=== PATIENT | female | born 1980 | race Caucasian/White ===

== ENCOUNTER → 2018-09-29 | Outpatient (CLI) | payer OTHER ==
[~2018-09-29] MED LIST: ALBU90OI; ALPR.25 PO; ALPR1 PO; DOXY100 PO; Effexor Xr37.5 MG PO; FERR325 PO; HYDACE5 PO; METO25ER PO; ONDA4ODT MM; OXYACE5T PO; OXYACE7.5T PO; OXYC5 PO; PROM25 PO; Percocet 5-3251 EACH PO; RXHYDACE PO; VENL75ER PO
[2018-09-29 13:04] LABS: BASOPHILS ABSOLUTE AUTO 0.04 K/mm3 (0.00-0.23); BASOPHILS PERCENT AUTO 1 % (0-2); EOSINOPHILS ABSOLUTE AUTO 0.13 K/mm3 (0.00-0.68); EOSINOPHILS PERCENT AUTO 2 % (0-6); Hematocrit 41.8 % (33.0-51.0); Hemoglobin 14.3 g/dL (11.5-16.0); IMMATURE GRAN ABSOLUTE AUTO 0.01 K/mm3 (0.00-0.10); IMMATURE GRAN PERCENT AUTO 0 % (0-1); LYMPHOCYTES PERCENT AUTO 27 % (21-46); MONOCYTES ABSOLUTE AUTO 0.38 K/mm3 (0.16-1.47); MONOCYTES PERCENT AUTO 7 % (4-13); Mean Corpuscular HGB Conc 34.2 g/dL (31.5-36.5); Mean Corpuscular Volume 88 fL (80-100); Mean Platelet Volume 11.7 fL (9.1-12.4); NEUTROPHILS ABSOLUTE AUTO 3.71 K/mm3 (1.96-9.15); NEUTROPHILS PERCENT AUTO 63 % (41-73); Platelet Count 225 K/mm3 (150-400); RDW Standard Deviation 41.8 fL (35.1-46.3); Red Blood Cell Count 4.77 M/mm3 (3.80-5.20); White Blood Cell Count 5.87 K/mm3 (4.00-11.30)
[2018-09-29 13:21] LABS: Alanine Aminotransfer (ALT/SGP 39 U/L (12-78); Albumin, Blood 4.1 g/dL (3.4-5.0); Albumin/Globulin Ratio 1.3 (0.8-1.8); Alk Phos 65 U/L (40-126); Anion Gap 8 mmol/L (6-16); Aspartate Aminotrans (AST/SGOT 17 U/L (12-37); Bilirubin, Total 0.4 mg/dL (0.1-1.0); Blood Urea Nitrogen 9 mg/dL (8-24); Bun/Creatinine Ratio 10.8 (12.0-20.0); CO2, Blood 27 mmol/L (21-32); Calcium, Blood 8.7 mg/dL (8.5-10.1); Chloride, Blood 104 mmol/L (98-108); Creatinine, Blood 0.83 mg/dL (0.40-1.00); Globulin, Blood 3.2 g/dL (2.2-4.0); Glomerular Filtration Rate >60 (60-); Glucose, Blood 96 mg/dL (70-99); Potassium, Blood 4.2 mmol/L (3.5-5.5); Sodium, Blood 139 mmol/L (136-145); Thyroid Stimulating Hormone 2.833 uIU/mL (0.360-4.800); Total Protein, Blood 7.3 g/dL (6.4-8.2)
== END | disposition home or self-care (01) ==
LOC: LAB EV 12:56 → LAB SHORT 12:56
PROVIDERS: Physician Assistant
DX: R53.83 Other fatigue (principal); I10 Essential (primary) hypertension
CPT/HCPCS: 80053; 82306; 84443; 85025

== ENCOUNTER → 2019-02-18 | Outpatient (CLI) | payer OTHER ==
[2019-02-18 11:08] LABS: BASOPHILS ABSOLUTE AUTO 0.03 K/mm3 (0.00-0.23); BASOPHILS PERCENT AUTO 1 % (0-2); EOSINOPHILS ABSOLUTE AUTO 0.15 K/mm3 (0.00-0.68); EOSINOPHILS PERCENT AUTO 3 % (0-6); Hematocrit 41.2 % (33.0-51.0); Hemoglobin 13.2 g/dL (11.5-16.0); IMMATURE GRAN ABSOLUTE AUTO 0.01 K/mm3 (0.00-0.10); IMMATURE GRAN PERCENT AUTO 0 % (0-1); LYMPHOCYTES ABSOLUTE AUTO 1.64 K/mm3 (0.84-5.20); LYMPHOCYTES PERCENT AUTO 30 % (21-46); MONOCYTES PERCENT AUTO 7 % (4-13); Mean Corpuscular HGB 29.4 pg (26.0-34.0); Mean Corpuscular Volume 92 fL (80-100); Mean Platelet Volume 10.9 fL (9.1-12.4); NEUTROPHILS ABSOLUTE AUTO 3.16 K/mm3 (1.96-9.15); NEUTROPHILS PERCENT AUTO 59 % (41-73); Platelet Count 237 K/mm3 (150-400); RDW Coefficient Variation 12.7 % (11.7-14.2); RDW Standard Deviation 42.5 fL (35.1-46.3); Red Blood Cell Count 4.49 M/mm3 (3.80-5.20); White Blood Cell Count 5.39 K/mm3 (4.00-11.30)
[2019-02-18 12:13] LABS: Free Thyroxine 0.82 ng/dL (0.70-1.60)
[2019-02-18 12:15] LABS: Thyroid Stimulating Hormone 2.4 uIU/mL (0.360-4.800)
== END | disposition home or self-care (01) ==
LOC: LAB SHORT 08:15 → LAB UCHC 08:15
PROVIDERS: Family Medicine
DX: E55.9 Vitamin D deficiency, unspecified (principal); F32.9 Major depressive disorder, single episode, unspecified
CPT/HCPCS: 82306; 84439; 84443; 85025

== ENCOUNTER → 2019-05-20 | Outpatient (CLI) | payer OTHER ==
[~2019-05-20] MED LIST changes: +BUPR75 PO; +IBUP800 PO; +MAGCHL64ER PO; +Vitamin D2000 UNIT PO
== END | disposition home or self-care (01) ==
LOC: LAB 11:20 → LAB SHORT 11:20
DX: R35.0 Frequency of micturition (principal)
CPT/HCPCS: 87077; 87086; 87186

== ENCOUNTER → 2019-05-22 | Outpatient (CLI) | payer OTHER ==
[2019-05-24 14:06] LABS: HPV 16 Negative (Negative); HPV 18 Negative (Negative); HPV OTHER HR TYPES Negative (Negative)
== END | disposition home or self-care (01) ==
LOC: LAB 16:28 → LAB SHORT 16:28
PROVIDERS: Obstetrics & Gynecology
DX: Z01.419 Encounter for gynecological examination (general) (routine) without abnormal findings (principal)
CPT/HCPCS: 87624; G0123

== ENCOUNTER → 2019-06-19 | Outpatient (CLI) | payer OTHER | END | disposition home or self-care (01) | LOC: PLD 15:06 → LAB SHORT 15:06 | DX: N93.8 Other specified abnormal uterine and vaginal bleeding (principal) | CPT/HCPCS: 88305 ==

== ENCOUNTER → 2019-07-02 | Outpatient (CLI) | payer OTHER ==
[2019-07-02 16:05] LABS: BASOPHILS ABSOLUTE AUTO 0.03 K/mm3 (0.00-0.23); BASOPHILS PERCENT AUTO 1 % (0-2); EOSINOPHILS ABSOLUTE AUTO 0.09 K/mm3 (0.00-0.68); EOSINOPHILS PERCENT AUTO 1 % (0-6); Hematocrit 41.1 % (33.0-51.0); Hemoglobin 13.2 g/dL (11.5-16.0); IMMATURE GRAN ABSOLUTE AUTO 0.01 K/mm3 (0.00-0.10); IMMATURE GRAN PERCENT AUTO 0 % (0-1); LYMPHOCYTES ABSOLUTE AUTO 1.91 K/mm3 (0.84-5.20); LYMPHOCYTES PERCENT AUTO 30 % (21-46); MONOCYTES ABSOLUTE AUTO 0.44 K/mm3 (0.16-1.47); MONOCYTES PERCENT AUTO 7 % (4-13); Mean Corpuscular HGB 29.6 pg (26.0-34.0); Mean Corpuscular HGB Conc 32.1 g/dL (31.5-36.5); Mean Corpuscular Volume 92 fL (80-100); Mean Platelet Volume 11.9 fL (9.1-12.4); NEUTROPHILS ABSOLUTE AUTO 3.86 K/mm3 (1.96-9.15); NEUTROPHILS PERCENT AUTO 61 % (41-73); Platelet Count 286 K/mm3 (150-400); RDW Coefficient Variation 13.2 % (11.7-14.2); RDW Standard Deviation 44.7 fL (35.1-46.3); Red Blood Cell Count 4.46 M/mm3 (3.80-5.20); White Blood Cell Count 6.34 K/mm3 (4.00-11.30)
[2019-07-02 16:20] LABS: Alanine Aminotransfer (ALT/SGP 39 U/L (12-78); Albumin, Blood 4.2 g/dL (3.4-5.0); Albumin/Globulin Ratio 1.3 (0.8-1.8); Alk Phos 67 U/L (50-136); Anion Gap 7 mmol/L (6-16); Aspartate Aminotrans (AST/SGOT 12 U/L (12-37); Bilirubin, Total 0.3 mg/dL (0.1-1.0); Blood Urea Nitrogen 8 mg/dL (8-24); Bun/Creatinine Ratio 10.5 (12.0-20.0); CO2, Blood 25 mmol/L (21-32); Calcium, Blood 8.9 mg/dL (8.5-10.1); Chloride, Blood 107 mmol/L (98-108); Creatinine, Blood 0.76 mg/dL (0.40-1.00); Globulin, Blood 3.2 g/dL (2.2-4.0); Glomerular Filtration Rate >60 (60-); Glucose, Blood 92 mg/dL (70-99); Potassium, Blood 4.1 mmol/L (3.5-5.5); Sodium, Blood 139 mmol/L (136-145); Total Protein, Blood 7.4 g/dL (6.4-8.2)
== END | disposition home or self-care (01) ==
LOC: LAB SHORT 12:42 → LAB 12:42
PROVIDERS: Obstetrics & Gynecology
DX: Z01.812 Encounter for preprocedural laboratory examination (principal)
CPT/HCPCS: 80053; 85025

== ENCOUNTER 2019-07-08 06:07 | Inpatient (IN) | payer OTHER ==
[~2019-07-08] VITALS: Ht 167.6 cm; Wt 89.5 kg
[~2019-07-08 06:07] MED LIST changes: -IBUP800 PO
--- NOTE | 2019-07-08 07:03 | NUR ---
Ambulatory in Day Surgery. History, Chart, Medications and Allergies reviewed before start of procedure. Surgical site prepped with 2% Chlorhexidine cloth wipe. Lungs clear T/O to Auscultation. Patient confirms NPO status and agrees with scheduled surgery. Patient reports completing Chlorhexadine shower X2 prior to admission to hospital.
--- NOTE | 2019-07-08 18:41 | NUR ---
SHIFT SUMMARY PT STRUGGLED WITH PAIN MANAGEMENT UNTIL AROUND 6PM. NAUSEA AND PAIN FELT MUCH BETTER. PT WAS DROWSY AFTER PHENERGAN AND WAS ABLE TO SLEEP BUT REPORTED FEELING STARTLED AWAKE FROM "SHARP CRAMPING". KAREEM ELIZABETH FULLY SHADOWED WITH MD [place] NOTIFIED.
[2019-07-09 05:01] LABS: BASOPHILS ABSOLUTE AUTO 0.03 K/mm3 (0.00-0.23); BASOPHILS PERCENT AUTO 0 % (0-2); EOSINOPHILS ABSOLUTE AUTO 0.03 K/mm3 (0.00-0.68); EOSINOPHILS PERCENT AUTO 0 % (0-6); Hematocrit 34.9 % (33.0-51.0); Hemoglobin 11.3 g/dL (11.5-16.0); IMMATURE GRAN ABSOLUTE AUTO 0.02 K/mm3 (0.00-0.10); IMMATURE GRAN PERCENT AUTO 0 % (0-1); LYMPHOCYTES ABSOLUTE AUTO 1.59 K/mm3 (0.84-5.20); LYMPHOCYTES PERCENT AUTO 15 % (21-46); MONOCYTES ABSOLUTE AUTO 1.01 K/mm3 (0.16-1.47); MONOCYTES PERCENT AUTO 10 % (4-13); Mean Corpuscular HGB 29.4 pg (26.0-34.0); Mean Corpuscular HGB Conc 32.4 g/dL (31.5-36.5); Mean Corpuscular Volume 91 fL (80-100); Mean Platelet Volume 11.7 fL (9.1-12.4); NEUTROPHILS ABSOLUTE AUTO 7.75 K/mm3 (1.96-9.15); NEUTROPHILS PERCENT AUTO 74 % (41-73); Platelet Count 210 K/mm3 (150-400); RDW Standard Deviation 43.1 fL (35.1-46.3); Red Blood Cell Count 3.85 M/mm3 (3.80-5.20); White Blood Cell Count 10.43 K/mm3 (4.00-11.30)
--- NOTE | 2019-07-09 07:21 | NUR ---
SUMMARY: POD [address] MILLER. VSS, AFEBRILE, AMBULATED HALLS AND TOLERATING PO INTAKE WELL. DENIES PASSING FLATUS YET TODAY. ESTRELLA DC'D AND AWAIT PT VOID. PAIN WELL CONTROLLED WITH FENTANYL [employer] AND PT BEGAN 2 TABS PERCOCET THIS AM. ENCOURAGE AMBULATION AND OOB ACTIVITY TOLERATED TODAY.
[2019-07-09] MEDS ORDERED: Percocet 5-3251 EACH PO (18:07)
[2019-07-09] MEDS ORDERED: IBUP800 PO (18:08)
--- NOTE | 2019-07-09 18:35 | NUR ---
DISCHARGE PT VOIDING, AMBULATING, TOLERATING DIET, PAIN CONTROLLED TO TOLERABLE LEVEL. STERI STRIPS REPLACED PER MD REQUEST.
== END 2019-07-09 18:37 | disposition home or self-care (01) | DRG 743 ==
LOC: SURS 06:07 → PRE IP 07:30 → SURS 10:00
PROVIDERS: ADMIT Obstetrics & Gynecology
PROC: 0UT00ZZ Resection of Right Ovary, Open Approach (ICD-10-PCS; 2019-07-08)
PROC: 0UT70ZZ Resection of Bilateral Fallopian Tubes, Open Approach (ICD-10-PCS; 2019-07-08)
PROC: 0DNW0ZZ Release Peritoneum, Open Approach (ICD-10-PCS; 2019-07-08)
PROC: 0UT90ZL Resection of Uterus, Supracervical, Open Approach (ICD-10-PCS; principal; 2019-07-08 07:30)
DX: N70.11 Chronic salpingitis (principal); N83.9 Noninflammatory disorder of ovary, fallopian tube and broad ligament, unspecified; N93.8 Other specified abnormal uterine and vaginal bleeding; N94.89 Other specified conditions associated with female genital organs and menstrual cycle; N92.0 Excessive and frequent menstruation with regular cycle; N80.9 Endometriosis, unspecified
CPT/HCPCS: 36415; 85025; 88307; A9270; J0690; J1100; J1885; J2250; J2405; J2550; J2704; J3010; J7120

== ENCOUNTER 2021-01-12 11:20 | Day surgery (SDC) | payer OTHER ==
[~2021-01-12] VITALS: Ht 167.6 cm; Wt 91.9 kg
[~2021-01-12 11:20] MED LIST changes: +ACCURETIC 10-11 EACH PO; +HYDROCHLOROTH12.5 MG PO; +IBUP800 PO
[2021-01-12] MEDS ORDERED: METO25 PO (12:05)
[2021-01-12] MEDS ORDERED: Adipex-P37.5 MG (12:06)
== END 2021-01-12 14:39 | disposition home or self-care (01) ==
LOC: ORSCSDS 11:20
PROVIDERS: Orthopaedic Surgery
PROC: 0LBR0ZZ Excision of Left Knee Tendon, Open Approach (ICD-10-PCS; principal; 2021-01-12 12:30)
DX: M71.22 Synovial cyst of popliteal space [Baker], left knee (principal); I10 Essential (primary) hypertension; J45.909 Unspecified asthma, uncomplicated; Z87.891 Personal history of nicotine dependence; Z79.899 Other long term (current) drug therapy; E66.9 Obesity, unspecified; Z68.32 Body mass index [BMI] 32.0-32.9, adult
CPT/HCPCS: 88304; A9270; J0690; J1100; J2250; J2405; J2704; J2795; J3010; J7120

== ENCOUNTER 2021-06-10 07:18 | Day surgery (SDC) | payer OTHER ==
[~2021-06-10] VITALS: Ht 167.6 cm; Wt 101.8 kg
[~2021-06-10 07:18] MED LIST changes: +Adipex-P37.5 MG; +METO25 PO
[2021-06-10] MEDS ORDERED: ACET500 (07:38)
== END 2021-06-10 09:25 | disposition home or self-care (01) ==
LOC: ORSCSDS 07:18
PROVIDERS: Orthopaedic Surgery
PROC: 01N50ZZ Release Median Nerve, Open Approach (ICD-10-PCS; principal; 2021-06-10 08:30)
DX: G56.01 Carpal tunnel syndrome, right upper limb (principal); I10 Essential (primary) hypertension; J45.909 Unspecified asthma, uncomplicated; F32.9 Major depressive disorder, single episode, unspecified; E66.9 Obesity, unspecified; Z68.36 Body mass index [BMI] 36.0-36.9, adult; Z87.891 Personal history of nicotine dependence; Z79.899 Other long term (current) drug therapy
CPT/HCPCS: A9270; J2250; J2704; J3010; J7120

== ENCOUNTER → 2022-11-23 | Outpatient (CLI) | payer OTHER ==
[~2022-11-23] MED LIST changes: +ACET500
[2022-11-23 11:16] LABS: BASOPHILS ABSOLUTE AUTO 0.03 K/mm3 (0.00-0.23); BASOPHILS PERCENT AUTO 1 % (0-2); EOSINOPHILS ABSOLUTE AUTO 0.14 K/mm3 (0.00-0.68); EOSINOPHILS PERCENT AUTO 2 % (0-6); Hematocrit 39.3 % (33.0-51.0); Hemoglobin 12.8 g/dL (11.5-16.0); IMMATURE GRAN ABSOLUTE AUTO 0.01 K/mm3 (0.00-0.10); IMMATURE GRAN PERCENT AUTO 0 % (0-1); LYMPHOCYTES ABSOLUTE AUTO 1.98 K/mm3 (0.84-5.20); LYMPHOCYTES PERCENT AUTO 33 % (21-46); MONOCYTES ABSOLUTE AUTO 0.41 K/mm3 (0.16-1.47); MONOCYTES PERCENT AUTO 7 % (4-13); Mean Corpuscular HGB 27.2 pg (26.0-34.0); Mean Corpuscular HGB Conc 32.6 g/dL (31.5-36.5); Mean Corpuscular Volume 84 fL (80-100); Mean Platelet Volume 11.3 fL (9.1-12.4); NEUTROPHILS ABSOLUTE AUTO 3.44 K/mm3 (1.96-9.15); NEUTROPHILS PERCENT AUTO 57 % (41-73); Platelet Count 276 K/mm3 (150-400); RDW Coefficient Variation 13.3 % (11.7-14.2); RDW Standard Deviation 40.8 fL (35.1-46.3); White Blood Cell Count 6.01 K/mm3 (4.00-11.30)
[2022-11-23 11:41] LABS: Albumin/Globulin Ratio 1.1 (0.8-1.8); Bilirubin, Total 0.4 mg/dL (0.1-1.0); Bun/Creatinine Ratio 14.5 (12.0-20.0); Calcium, Blood 9.2 mg/dL (8.5-10.1); Creatinine, Blood 0.83 mg/dL (0.40-1.00); Globulin, Blood 3.7 g/dL (2.2-4.0); Potassium, Blood 4.1 mmol/L (3.5-5.5); Total Protein, Blood 7.7 g/dL (6.4-8.2)
== END | disposition home or self-care (01) ==
LOC: LAB SHORT 11:11
PROVIDERS: Physician Assistant
DX: R07.9 Chest pain, unspecified (principal)
CPT/HCPCS: 80053; 84484; 85025; 85379

== ENCOUNTER 2023-07-04 17:02 | Emergency (ER) | payer OTHER ==
[~2023-07-04] VITALS: Ht 167.6 cm; Wt 92.5 kg
[2023-07-04 17:11] VITALS: BP 160/94
[2023-07-04 17:51] LABS: Source, Urine Clean Catch
[2023-07-04 17:56] LABS: Appearance, Urine Clear (Clear); Bilirubin, Urine Neg (Neg); Blood, Urine Neg (Neg); Color, Urine Yellow (P-Yellow); Glucose Qualitative, Urine Neg (Neg); Ketones, Urine Neg (Neg); Leukocyte Esterase, Urine Neg (Neg); Nitrite, Urine Neg (Neg); Protein, Urine Neg (Neg); Urobilinogen, Urine NORM (Normal)
[2023-07-04 18:13] LABS: BASOPHILS ABSOLUTE AUTO 0.03 K/mm3 (0.00-0.23); BASOPHILS PERCENT AUTO 1 % (0-2); EOSINOPHILS ABSOLUTE AUTO 0.09 K/mm3 (0.00-0.68); EOSINOPHILS PERCENT AUTO 2 % (0-6); Hematocrit 40.1 % (33.0-51.0); Hemoglobin 13.7 g/dL (11.5-16.0); IMMATURE GRAN ABSOLUTE AUTO 0.01 K/mm3 (0.00-0.10); IMMATURE GRAN PERCENT AUTO 0 % (0-1); LYMPHOCYTES ABSOLUTE AUTO 2.07 K/mm3 (0.84-5.20); LYMPHOCYTES PERCENT AUTO 37 % (21-46); MONOCYTES ABSOLUTE AUTO 0.49 K/mm3 (0.16-1.47); MONOCYTES PERCENT AUTO 9 % (4-13); Mean Corpuscular HGB 29.3 pg (26.0-34.0); Mean Corpuscular HGB Conc 34.2 g/dL (31.5-36.5); Mean Corpuscular Volume 86 fL (80-100); Mean Platelet Volume 11.2 fL (9.1-12.4); NEUTROPHILS ABSOLUTE AUTO 2.98 K/mm3 (1.96-9.15); NEUTROPHILS PERCENT AUTO 53 % (41-73); Platelet Count 237 K/mm3 (150-400); RDW Coefficient Variation 13.1 % (11.7-14.2); Red Blood Cell Count 4.67 M/mm3 (3.80-5.20); White Blood Cell Count 5.67 K/mm3 (4.00-11.30)
[2023-07-04] MEDS ORDERED: BISA5EC PO (18:31)
[2023-07-04] MEDS ORDERED: MIRALAX17 GM PO (18:31)
[2023-07-04 18:36] LABS: Albumin, Blood 4.1 g/dL (3.4-5.0); Albumin/Globulin Ratio 1.3 (0.8-1.8); Bilirubin, Total 0.7 mg/dL (0.1-1.0); Bun/Creatinine Ratio 15.7 (12.0-20.0); Calcium, Blood 8.8 mg/dL (8.5-10.1); Creatinine, Blood 0.83 mg/dL (0.40-1.00); Globulin, Blood 3.2 g/dL (2.2-4.0); Potassium, Blood 3.8 mmol/L (3.5-5.5); Total Protein, Blood 7.3 g/dL (6.4-8.2)
== END 2023-07-04 20:26 | disposition home or self-care (01) ==
LOC: ER 17:02
PROVIDERS: Student in an Organized Health Care Education/Training Program
DX: K59.00 Constipation, unspecified (principal); Z88.8 Allergy status to other drugs, medicaments and biological substances; Z79.899 Other long term (current) drug therapy; Z87.891 Personal history of nicotine dependence
CPT/HCPCS: 74018; 80053; 81003; 81025; 83690; 85025; 99283-25; A9270; J7030

== ENCOUNTER → 2023-07-10 | Outpatient (CLI) | payer OTHER ==
[~2023-07-10] MED LIST changes: +BISA5EC PO; +MIRALAX17 GM PO
== END | disposition home or self-care (01) ==
LOC: LAB SHORT 13:10 → LAB 13:10
DX: R31.9 Hematuria, unspecified (principal)
CPT/HCPCS: 87077; 87086; 87186

== ENCOUNTER 2024-03-04 09:02 | Day surgery (SDC) | payer OTHER ==
[~2024-03-04] VITALS: Ht 167.6 cm; Wt 91.1 kg
[~2024-03-04 09:02] MED LIST changes: +Lactated Ringer's 1,000 ML IV ONE; +Phentermine HCl15 MG PO
[2024-03-04] MEDS ORDERED: NS 50 ML IV ONE (09:19)
[2024-03-04] MEDS ORDERED: CeFAZolin Sodium 2,000 MG VIAL ONE (09:19)
[2024-03-04] MEDS ORDERED: VALTREX50013 PO (09:34)
[2024-03-04] MEDS ORDERED: TIZANIDINE HCL213 PO (09:34)
[2024-03-04] MEDS ORDERED: SENNA LAXATIVE8.6 MG PO (09:35)
[2024-03-04] MEDS ORDERED: ZINC (09:36)
[2024-03-04] MEDS ORDERED: CALCIUM (09:36)
[2024-03-04] MEDS ORDERED: MAGNESIUM (09:36)
[2024-03-04] MEDS ORDERED: Lactated Ringer's 1,000 ML IV ONE (09:44)
[2024-03-04] MEDS ORDERED: propofoL 20 ML IV ONE (09:57)
[2024-03-04] MEDS ORDERED: FentaNYL Citrate 50 MCG/ML 2 ML Injection ONE ×2 (09:57→12:03)
[2024-03-04] MEDS ORDERED: Midazolam HCl 1MG / ML 2ML Vial ONE (09:57)
[2024-03-04] MEDS ORDERED: ALBUTEROL (10:02)
--- NOTE | 2024-03-04 10:31 | NUR ---
03/04/[address] NOTIFIED OF HEALING SCRAPE TO [facility]
[2024-03-04] MEDS ORDERED: EPINEPhrine HCl 1 MG/ML 1ML Amp XX ONE (11:05)
[2024-03-04] MEDS ORDERED: Ropivacaine 0.5% HCl/Pf 5 MG/ML 20ML VIAL INJ ONE (11:05)
--- NOTE | 2024-03-04 11:13 | NUR ---
03/04/24 1113 Shellie Beard ROPIVACAINE 0.5% 20MLS MIXED AND VERIFIED W/ EPI 0.1MG (1MG/ML) TO MAKE ROPIVACAINE 0.5% W/ EPI 1:200,000 [facility] SAL[facility]CA
[2024-03-04 11:59] VITALS: BP 137/88
--- NOTE | 2024-03-04 12:13 | NUR ---
03/04/24 1213 Tommy Resendez FENTANYL 25MCG IV GIVEN AT 1210 FOR LEFT KNEE PAIN AT 06/05
[2024-03-04] MEDS ORDERED: HYDROcodone 5-APAP 325 TAB ONE (12:49)
== END 2024-03-04 13:25 | disposition home or self-care (01) ==
LOC: ORSCSDS 09:02
PROVIDERS: Orthopaedic Surgery
PROC: 0SBD4ZZ Excision of Left Knee Joint, Percutaneous Endoscopic Approach (ICD-10-PCS; principal; 2024-03-04 10:30)
DX: S83.242A Other tear of medial meniscus, current injury, left knee, initial encounter (principal); I10 Essential (primary) hypertension; J45.909 Unspecified asthma, uncomplicated; F32.A Depression, unspecified; Z79.899 Other long term (current) drug therapy; Z87.891 Personal history of nicotine dependence
CPT/HCPCS: A9270; J0171; J0690; J2250; J2704; J2795; J3010; J7120

== ENCOUNTER 2024-04-01 07:42 | Day surgery (SDC) | payer OTHER ==
[~2024-04-01] VITALS: Ht 167.6 cm; Wt 89.0 kg
[~2024-04-01 07:42] MED LIST changes: +ALBUTEROL; +CALCIUM; +MAGNESIUM; +SENNA LAXATIVE8.6 MG PO; +TIZANIDINE HCL213 PO; +VALTREX50013 PO; +ZINC
[2024-04-01] MEDS ORDERED: CeFAZolin Sodium 2,000 MG VIAL ONE (07:54)
[2024-04-01] MEDS ORDERED: NS 50 ML IV ONE (07:55)
[2024-04-01] MEDS ORDERED: Lactated Ringer's 1,000 ML IV ONE (08:36)
[2024-04-01] MEDS ORDERED: Ropivacaine 0.5% HCl/Pf 5 MG/ML 20ML VIAL ONE (08:57)
[2024-04-01] MEDS ORDERED: FentaNYL Citrate 50 MCG/ML 2 ML Injection ONE ×2 (09:08→10:31)
[2024-04-01] MEDS ORDERED: Ondansetron HCl 2 MG / ML 2ML Vial ONE (09:08)
[2024-04-01] MEDS ORDERED: Dexamethasone Sod Phos 10 MG/ML 1ML VIAL ONE (09:08)
[2024-04-01] MEDS ORDERED: propofoL 20 ML IV ONE (09:08)
[2024-04-01] MEDS ORDERED: Ketorolac Tromethamine 30mg Vial ONE (09:08)
[2024-04-01] MEDS ORDERED: Midazolam HCl 1MG / ML 2ML Vial ONE (09:12)
[2024-04-01] MEDS ORDERED: Rocuronium Bromide 10 MG/ML 5ML Injection IV ONE (09:18)
[2024-04-01] MEDS ORDERED: EPINEPhrine HCl 1 MG/ML 1ML Amp XX ONE (09:35)
--- NOTE | 2024-04-01 09:43 | NUR ---
04/01/24 0943 Ashlyn Wilson ROPIVACAINE 0.5% 20MLS MIXED AND VERIFIED W/ EPI 0.1MG (1MG/ML) TO MAKE ROPIVACAINE 0.5% W/ EPI 1[facility]200,[facility]
[2024-04-01] MEDS ORDERED: Neostigmine Methylsulfate 5MG/5ML SYR ONE (10:20)
[2024-04-01] MEDS ORDERED: Glycopyrrolate 0.2 MG/ML 5ML VIAL ONE (10:20)
[2024-04-01] MEDS ORDERED: HYDROcodone 5-APAP 325 TAB ONE (11:00)
[2024-04-01 11:21] VITALS: BP 128/71
== END 2024-04-01 11:32 | disposition home or self-care (01) ==
LOC: ORSCSDS 07:42
PROVIDERS: Orthopaedic Surgery
PROC: 01N40ZZ Release Ulnar Nerve, Open Approach (ICD-10-PCS; principal; 2024-04-01 08:45)
DX: G56.21 Lesion of ulnar nerve, right upper limb (principal); I10 Essential (primary) hypertension; J45.909 Unspecified asthma, uncomplicated; Z87.891 Personal history of nicotine dependence; K21.9 Gastro-esophageal reflux disease without esophagitis; F41.9 Anxiety disorder, unspecified; Z79.899 Other long term (current) drug therapy
CPT/HCPCS: A9270; J0171; J0690; J1100; J1885; J2250; J2405; J2704; J2710; J2795; J3010; J7120

== ENCOUNTER → 2024-06-26 | Outpatient (CLI) | payer OTHER ==
[~2024-06-26] MED LIST changes: -Lactated Ringer's 1,000 ML IV ONE
[2024-06-26 10:19] LABS: BASOPHILS ABSOLUTE AUTO 0.05 K/mm3 (0.00-0.23); BASOPHILS PERCENT AUTO 1 % (0-2); EOSINOPHILS ABSOLUTE AUTO 0.13 K/mm3 (0.00-0.68); EOSINOPHILS PERCENT AUTO 2 % (0-6); Hematocrit 38.9 % (33.0-51.0); Hemoglobin 12.5 g/dL (11.5-16.0); IMMATURE GRAN ABSOLUTE AUTO 0.01 K/mm3 (0.00-0.10); IMMATURE GRAN PERCENT AUTO 0 % (0-1); LYMPHOCYTES ABSOLUTE AUTO 2.35 K/mm3 (0.84-5.20); LYMPHOCYTES PERCENT AUTO 33 % (21-46); MONOCYTES PERCENT AUTO 7 % (4-13); Mean Corpuscular HGB 27.5 pg (26.0-34.0); Mean Corpuscular HGB Conc 32.1 g/dL (31.5-36.5); Mean Corpuscular Volume 86 fL (80-100); Mean Platelet Volume 11.3 fL (9.1-12.4); NEUTROPHILS ABSOLUTE AUTO 4.04 K/mm3 (1.96-9.15); NEUTROPHILS PERCENT AUTO 57 % (41-73); Platelet Count 280 K/mm3 (150-400); RDW Coefficient Variation 13.3 % (11.7-14.2); RDW Standard Deviation 41.7 fL (35.1-46.3); Red Blood Cell Count 4.55 M/mm3 (3.80-5.20); White Blood Cell Count 7.08 K/mm3 (4.00-11.30)
[2024-06-26 10:41] LABS: Albumin, Blood 3.8 g/dL (3.4-5.0); Bilirubin, Total 0.3 mg/dL (0.1-1.0); Calcium, Blood 9.1 mg/dL (8.5-10.1); Creatinine, Blood 0.75 mg/dL (0.40-1.00); Globulin, Blood 3.8 g/dL (2.2-4.0); Magnesium, Blood 2.1 mg/dL (1.6-2.4); Potassium, Blood 3.9 mmol/L (3.5-5.5); Thyroid Stimulating Hormone 2.685 uIU/mL (0.360-4.800); Total Protein, Blood 7.6 g/dL (6.4-8.2)
== END | disposition home or self-care (01) ==
LOC: LAB SHORT 10:15 → LAB 10:15
PROVIDERS: Chiropractor
DX: R07.89 Other chest pain (principal); R53.83 Other fatigue
CPT/HCPCS: 80053; 83735; 84443; 84484; 85025; 85379

== ENCOUNTER → 2025-08-07 | Outpatient (CLI) | payer OTHER ==
[2025-08-07 19:41] LABS: BASOPHILS ABSOLUTE AUTO 0.04 K/mm3 (0.00-0.23); BASOPHILS PERCENT AUTO 1 % (0-2); EOSINOPHILS ABSOLUTE AUTO 0.06 K/mm3 (0.00-0.68); EOSINOPHILS PERCENT AUTO 1 % (0-6); Hematocrit 42.0 % (33.0-51.0); Hemoglobin 14.1 g/dL (11.5-16.0); IMMATURE GRAN ABSOLUTE AUTO 0.01 K/mm3 (0.00-0.10); IMMATURE GRAN PERCENT AUTO 0 % (0-1); LYMPHOCYTES ABSOLUTE AUTO 2.34 K/mm3 (0.84-5.20); LYMPHOCYTES PERCENT AUTO 33 % (21-46); MONOCYTES ABSOLUTE AUTO 0.47 K/mm3 (0.16-1.47); MONOCYTES PERCENT AUTO 7 % (4-13); Mean Corpuscular HGB Conc 33.6 g/dL (31.5-36.5); Mean Corpuscular Volume 89 fL (80-100); NEUTROPHILS ABSOLUTE AUTO 4.17 K/mm3 (1.96-9.15); NEUTROPHILS PERCENT AUTO 59 % (41-73); NRBC ABSOLUTE 0.00 K/mm3 (0.00-0.02); NRBC Auto 0.0 /100 WBC (0.0-0.2); Platelet Count 283 K/mm3 (150-400); RDW Coefficient Variation 13.1 % (11.7-14.2); RDW Standard Deviation 43.0 fL (35.1-46.3)
[2025-08-07 19:58] LABS: Alanine Aminotransfer (ALT/SGP 29 U/L (12-78); Albumin, Blood 4.4 g/dL (3.4-5.0); Albumin/Globulin Ratio 1.3 (0.8-1.8); Anion Gap 9 mmol/L (3-11); Aspartate Aminotrans (AST/SGOT 10 U/L (12-37); Bilirubin, Total 0.6 mg/dL (0.1-1.0); Blood Urea Nitrogen 13 mg/dL (8-24); CHOL/HDL RATIO 4.7; CO2, Blood 25 mmol/L (21-32); Calcium, Blood 9.1 mg/dL (8.5-10.1); Chloride, Blood 106 mmol/L (98-108); Cholesterol 183 mg/dL (50-200); Creatinine, Blood 0.88 mg/dL (0.40-1.00); Globulin, Blood 3.4 g/dL (2.2-4.0); Glucose, Blood 97 mg/dL (70-99); HDL Cholesterol 39 mg/dL (>39); LDL/HDL RATIO 3.2; Low Density Lipoprotein Chol 125 mg/dL (0-110); Potassium, Blood 4.0 mmol/L (3.5-5.5); Sodium, Blood 136 mmol/L (136-145); Total Protein, Blood 7.8 g/dL (6.4-8.2); Triglycerides 96 mg/dL (30-160); Very Low Density Lipoprot Chol 19 mg/dL (6-32)
== END ==
LOC: LAB 18:45 → LAB SHORT 18:45
PROVIDERS: Nurse Practitioner Family
DX: I10 Essential (primary) hypertension (principal)
CPT/HCPCS: 80053; 80061; 85025